=== PATIENT | female | born 1970 | race Caucasian/White ===

== ENCOUNTER 2017-06-10 15:02 | Emergency (ER) | payer OTHER ==
[~2017-06-10] VITALS: Ht 154.9 cm; Wt 61.9 kg
[2017-06-10 16:04] LABS: HEMATOCRIT 40.6 % (36.0-46.0); MCH 30.4 PG (29.0-34.0); MCHC 34.7 G/DL (30.0-36.0); MCV 87.5 FL (83-99); MEAN PLAT.VOLUME 10.9 uM^3 (9.5-12.4); PLATELET COUNT 160 K/uL (156-360); RBC DIS.WIDTH-CV 12.6 % (11.8-14.6); RBC DIS.WIDTH-SD 40.5 % (39-53); RED BLOOD COUNT 4.64 M/uL (3.80-5.20); WHITE BLOOD COUNT 9.4 K/uL (4.1-10.2)
[2017-06-10 16:15] LABS: CHLORIDE 105 mEq/L (99-109); POTASSIUM 3.3 mEq/L (3.7-5.4); SODIUM 134 mEq/L (136-147)
[2017-06-10 16:17] LABS: GLUCOSE 106 mg/dL (70-99)
[2017-06-10 16:18] LABS: ADD MIUA? YES; BILIRUBIN NEGATIVE; BLOOD MODERATE; COLOR AMBER ((YELLOW)); GLUCOSE (STRIP) NEGATIVE; KETONES 5; LEUKOCYTES NEGATIVE; NITRITE NEGATIVE; PROTEIN (STRIP) 30; UROBILINOGEN 0.2 MG/DL (0.2-1.0)
[2017-06-10 16:18] LABS: ANION GAP 9 MEQ/L (2-14)
[2017-06-10 16:19] LABS: TOTAL BILIRUBIN 0.5 mg/dL (0.0-1.0)
[2017-06-10 16:20] LABS: ALKALINE PHOSPHATASE 68 IU/L (3-129)
[2017-06-10 16:22] LABS: UREA NITROGEN (BUN) 5 mg/dL (9-23)
[2017-06-10 16:24] LABS: LIPASE 15 U/L (1.0-51.0)
[2017-06-10 16:25] LABS: GFR ESTIMATE (CALCULATED) > 59 mL/min/
[2017-06-10 16:28] LABS: BACTERIA RARE /HPF; EPITHELIAL CELLS 4+ /HPF; MUCUS 2+ /LPF; RED BLOOD CELLS 0-5 /HPF (0-5); WHITE BLOOD CELLS 0-5 /HPF (0-5)
[2017-06-10 16:50] LABS: QUANTITATIVE HCG 104169.6 MIU/ML
[2017-06-10] MEDS ORDERED: ZOFRAN ODT4 MG PO (18:02)
[2017-06-10 18:14] VITALS: BP 111/58
== END 2017-06-10 18:16 | disposition home or self-care (01) ==
LOC: EME 15:02
PROVIDERS: Nurse Practitioner Family
DX: O46.8X1 Other antepartum hemorrhage, first trimester (principal); O21.9 Vomiting of pregnancy, unspecified; O09.521 Supervision of elderly multigravida, first trimester; Z3A.10 10 weeks gestation of pregnancy
CPT/HCPCS: 76801; 80053; 81003; 83690; 84702; 85027; 99281; 99284; J2405; J7030